=== PATIENT | female | born 1975 | race Hispanic/Latino ===

== ENCOUNTER 2018-09-05 18:46 | Inpatient (IN) | payer MEDICAID | END 2018-09-09 19:07 | disposition home or self-care (01) | LOC: EDH 18:46 → EDHIP 18:47 → 4BH 09-06 02:10 | DX: R19.7 Diarrhea, unspecified (principal); I12.0 Hypertensive chronic kidney disease with stage 5 chronic kidney disease or end stage renal disease; E87.5 Hyperkalemia; N18.6 End stage renal disease; D72.819 Decreased white blood cell count, unspecified; Z99.2 Dependence on renal dialysis; E87.70 Fluid overload, unspecified ==